=== PATIENT | female | born 1945 | race Hispanic/Latino ===

== ENCOUNTER 2017-04-22 15:08 | Emergency (ER) | payer MEDICARE, OTHER ==
[2017-04-22 15:16] VITALS: BP 126/73; PULSE 73; RESP 18; TEMP 98.2; O2SAT 98
[2017-04-22 16:06] LABS: BASO # 0.1 K/uL (0.0-0.2); BASO % 1.4 % (0.0-2.0); EOS # 0.3 K/uL (0.0-0.7); EOS % 3.8 % (0.0-4.0); HEMATOCRIT 29.7 % (34.0-47.0); LYMPH # 2.2 K/uL (1.0-4.3); LYMPH % 30.1 % (20.0-40.0); MEAN CELL VOLUME 83.2 fl (81.0-99.0); MEAN CORPUSCULAR HGB CONC 33.7 g/dL (33.0-37.0); MEAN PLATELET VOLUME 8.9 fl (7.2-11.7); MONO # 0.7 K/uL (0.0-0.8); MONO % 9.4 % (0.0-10.0); NEUT % 55.3 % (50.0-75.0); NRBC % 0.1 % (0.0-0.0); RED CELL DISTRIBUTION WIDTH 14.7 % (11.5-14.5); WHITE BLOOD COUNT 7.3 K/uL (4.8-10.8)
[2017-04-22 16:15] LABS: ALB/GLOB RATIO 1.4 (1.0-2.1); ALKALINE PHOSPHATASE 68 U/L (38-126); ALT/SGPT 33 U/L (9-52); AST/SGOT 25 U/L (14-36); BILIRUBIN,TOTAL 0.5 mg/dl (0.2-1.3); BLOOD UREA NITROGEN 17 mg/dl (7-17); CALCIUM 9.2 mg/dL (8.4-10.2); CARBON DIOXIDE 25 mmol/L (22-30); CHLORIDE 104 mmol/L (98-107); GFR AFRICAN-AMERICAN > 60; GLUCOSE,RANDOM 74 mg/dL (65-105); LIPASE 156 U/L (23-300); POTASSIUM 4.1 MMOL/L (3.6-5.0); SODIUM 138 mmol/l (132-148); TOTAL PROTEIN 6.8 G/DL (6.3-8.2)
--- NOTE | 2017-04-22 16:40 | ED PDOC ---
HPI: Abdomen Time Seen by Provider: 04/22/17 15:24 Chief Complaint (Nursing): Abdominal Pain Chief Complaint (Provider): Abdominal Pain History Per: Patient History/Exam Limitations: no limitations Onset/Duration Of Symptoms: Days (x 6 months) Current Symptoms Are (Timing): Constant Associated Symptoms: Nausea Additional Complaint(s): Dalila is a 72 y/o female who presents to the ED complaining of left abdominal pain, onset 6 months ago but worsened today. Pain is described as constant and daily. Took Advil today without relief. She had some nausea but denies vomiting , diarrhea, constipation, bleeding, fever. Patient has a past medical history of dementia, hypertension, diverticulosis, diverticulitis, and gastritis, states she has no surgical history. PMD: [facility] at [facility] Past Medical History Reviewed: Historical Data, Nursing Documentation, Vital Signs Vital Signs: Last Vital Signs Temp 98.2 F 04/22/17 15:13 Pulse 73 04/22/17 15:13 Resp 18 04/22/17 15:13 BP 126/73 04/22/17 15:13 Pulse Ox 98 04/24/17 10:31 - Medical History PMH: Alzheimer's Disease, Anxiety, COPD, Dementia, Depression, Gastritis, HTN, Hypercholesterolemia, Osteoporosis, Pneumonia Denies: Chronic Kidney Disease - Surgical History Surgical History: No Surg Hx - Family History Family History: States: Unknown Family Hx - Social History Ex-Smoker (has not smoked in the last 12 months): Yes Alcohol: None Drugs: Denies - Immunization History Hx Tetanus Toxoid Vaccination: No Hx Influenza Vaccination: No Hx Pneumococcal Vaccination: No - Home Medications Home Medications: Ambulatory Orders Medication Instructions Recorded Donepezil HCl [Aricept] 10 mg PO DAILY 01/13/14 Omeprazole [Omeprazole] 20 mg PO DAILY 01/13/14 Raloxifene HCl [Evista] 60 mg PO DAILY 01/13/14 Betamethasone Dipropionate 1 appl TOP BID 06/09/14 [Betamethasone Dip] Montelukast [Singulair] 10 mg PO HS 06/09/14 Multivitamin/Iron/Folic Acid 1 tab PO DAILY 06/09/14 [Centrum Complete Multivit Tab] Naproxen Sodium [Aleve] 440 mg PO PRN PRN 06/09/14 [place]-3 Fatty Acids/Fish Oil [Fish 1,000 mg PO DAILY 06/09/14 Oil] PARoxetine CR [Paxil CR] 37.5 mg PO DAILY 06/09/14 Simvastatin [Zocor] 20 mg PO DAILY 06/09/14 Solifenacin Succinate [Vesicare] 5 mg PO DAILY 06/09/14 Acetaminophen/Codeine 1 tab PO Q4 PRN #0 tab 06/17/14 [Tylenol/Codeine 300 MG/30 MG] Meropenem [Merrem IV] 1 gm IV Q12 #0 vial 06/17/14 Ofloxacin Otic 0.3% [Floxin 0.3% 10 drop AU BID #0 bottle 06/17/14 Otic Soln] Pantoprazole [Protonix EC Tab] 40 mg PO DAILY #0 ect 06/17/14 buPROPion [Wellbutrin] 75 mg PO DAILY 08/30/14 Albuterol HFA [Ventolin HFA 90 2 puff IH [id number] #1 unit 11/18/15 mcg/actuation (8 g)] Azithromycin [Zithromax Tri-Arley] 500 mg PO DAILY #1 packet 11/18/15 Docusate Sodium [Colace] 100 mg PO DAILY #30 capsule 04/22/17 traMADol [Ultram] 50 mg PO HS #15 tab 04/22/17 - Allergies Allergies/Adverse Reactions: Allergies Allergy/AdvReac Type Severity Reaction Status Date / Time No Known Allergies Allergy Verified 11/18/15 01:22 Review of Systems ROS Statement: Except As Marked, All Systems Reviewed And Found Negative Constitutional: Negative for: Fever Gastrointestinal: Positive for: Nausea, Abdominal Pain (Left). Negative for: Vomiting, Diarrhea, Constipation, Hematochezia Physical Exam - Reviewed Nursing Documentation Reviewed: Yes Vital Signs Reviewed: Yes - Physical Exam Appears: Positive for: Non-toxic, No Acute Distress Head Exam: Positive for: ATRAUMATIC, NORMAL INSPECTION, NORMOCEPHALIC Skin: Positive for: Normal Color, Warm, Dry Eye Exam: Positive for: EOMI, Normal appearance, PERRL Neck: Positive for: Normal, Painless ROM, Supple Cardiovascular/Chest: Positive for: Regular Rate, Rhythm. Negative for: Murmur Respiratory: Positive for: Normal Breath Sounds. Negative for: Respiratory Distress Gastrointestinal/Abdominal: Positive for: Soft, Tenderness (LLQ tenderness to palpation) Back: Positive for: Normal Inspection. Negative for: Vertebral Tenderness Extremity: Positive for: Normal ROM. Negative for: Deformity Neurologic/Psych: Positive for: Alert, Oriented - Laboratory Results Result Diagrams: 04/22/17 16:00 04/22/17 16:00 - ECG O2 Sat by Pulse Oximetry: 98 (RA) Pulse Ox Interpretation: Normal Medical Decision Making Medical Decision Making: Time: 15:45 Initial Impression: Diverticulitis, Colitis, Lower bowel obstruction, UTI Initial Plan: --CBC --CMP --Lipase --Urine dipstick --Zofran 4 mg IV --Pending CT Abdomen/Pelvis IV contrast Time: 18:23 CT Abdomen/Pelvis FINDINGS: LOWER THORAX: Moderate hiatal hernia. No infiltrate/ effusion. LIVER: Unremarkable. No gross lesion or ductal dilatation. GALLBLADDER AND BILE DUCTS: Unremarkable. PANCREAS: Unremarkable. No gross lesion or ductal dilatation. SPLEEN: Unremarkable. ADRENALS: Unremarkable. No mass. KIDNEYS AND URETERS: Unremarkable. No hydronephrosis. No solid mass. VASCULATURE: Unremarkable. No aortic aneurysm. BOWEL: Sigmoid diverticulosis. No evidence of diverticulitis. No bowel obstruction. No additional bowel abnormality. APPENDIX: Normal appendix. PERITONEUM: Unremarkable. No free fluid. No free air. LYMPH NODES: Unremarkable. No enlarged lymph nodes. BLADDER: Unremarkable. REPRODUCTIVE: Normal postmenopausal uterus. BONES: Severe L3 compression deformity and moderate T11 and L1 compression deformities are unchanged compared to prior CT examination. OTHER FINDINGS: None. IMPRESSION: No acute abnormality. Old compression deformities of thoracic and lumbar vertebrae. Sigmoid diverticulosis without evidence of diverticulitis. Moderate hiatal hernia. Time: 18:35 Clinical Impression: Diverticulosis, Abdominal Pain Upon provider reevaluation patient is medically stable, and requires no further treatment in the ED at this time. Patient will be discharged with Rx for Ultram and Colace. Counseling was provided and all questions were answered regarding diagnosis and need for follow up with PCP in 2-3 days. There is agreement to discharge plan. Return if symptoms persist or worsen. Scribe Attestation: Documented by Apple Diaz, acting as a scribe for Harpal Hood MD Provider Scribe Attestation: All medical record entries made by the Scribe were at my direction and personally dictated by me. I have reviewed the chart and agree that the record accurately reflects my personal performance of the history, physical exam, medical decision making, and the department course for this patient. I have also personally directed, reviewed, and agree with the discharge instructions and disposition. Disposition - Clinical Impression Clinical Impression: Abdominal pain, Diverticulosis - Patient ED Disposition Is Patient to be Admitted: No Doctor Will See Patient In The: Office Counseled Patient/Family Regarding: Studies Performed, Diagnosis, Need For Followup - Disposition Referrals: [facility] [Outside] Disposition: Routine/Home Disposition Time: 18:35 Condition: GOOD Additional Instructions: Take your medications as instructed. Follow up with your PCP in 2-3 days. Prescriptions: Docusate Sodium [Colace] 100 mg PO DAILY #30 capsule traMADol [Ultram] 50 mg PO HS #15 tab Instructions: Diverticulitis Diet (ED), Abdominal Pain (ED)
[2017-04-22] MEDS ORDERED: Sodium Chloride 0.9% 50 ML IV ONE (17:35)
[2017-04-22] MEDS ORDERED: Iohexol 300 100 ML IJ ONE (17:35)
--- NOTE | 2017-04-22 18:24 | CT ---
PROCEDURE: CT Abdomen and Pelvis with contrast HISTORY: abdominal pain COMPARISON: 11/18/2015 TECHNIQUE: Contrast dose: 95 mL Omnipaque 3 9 Radiation dose: Total exam DLP = 575.31 mGy-cm. This CT exam was performed using one or more of the following dose reduction techniques: Automated exposure control, adjustment of the mA and/or kV according to patient size, and/or use of iterative reconstruction technique. FINDINGS: LOWER THORAX: Moderate hiatal hernia. No infiltrate/ effusion. LIVER: Unremarkable. No gross lesion or ductal dilatation. GALLBLADDER AND BILE DUCTS: Unremarkable. PANCREAS: Unremarkable. No gross lesion or ductal dilatation. SPLEEN: Unremarkable. ADRENALS: Unremarkable. No mass. KIDNEYS AND URETERS: Unremarkable. No hydronephrosis. No solid mass. VASCULATURE: Unremarkable. No aortic aneurysm. BOWEL: Sigmoid diverticulosis. No evidence of diverticulitis. No bowel obstruction. No additional bowel abnormality. APPENDIX: Normal appendix. PERITONEUM: Unremarkable. No free fluid. No free air. LYMPH NODES: Unremarkable. No enlarged lymph nodes. BLADDER: Unremarkable. REPRODUCTIVE: Normal postmenopausal uterus. BONES: Severe L3 compression deformity and moderate T11 and L1 compression deformities are unchanged compared to prior CT examination. OTHER FINDINGS: None. IMPRESSION: No acute abnormality. Old compression deformities of thoracic and lumbar vertebrae. Sigmoid diverticulosis without evidence of diverticulitis. Moderate hiatal hernia.
== END 2017-04-22 20:59 | disposition home or self-care (01) ==
LOC: H.ER 15:08
DX: K57.30 Diverticulosis of large intestine without perforation or abscess without bleeding (principal); F02.80 Dementia in other diseases classified elsewhere, unspecified severity, without behavioral disturbance, psychotic disturbance, mood disturbance, and anxiety; F32.9 Major depressive disorder, single episode, unspecified; F41.9 Anxiety disorder, unspecified; G30.9 Alzheimer's disease, unspecified; I10 Essential (primary) hypertension; K44.9 Diaphragmatic hernia without obstruction or gangrene
CPT/HCPCS: 74177; 80053; 83690; 85025; 96374; 99284; J2405; Q9967